=== PATIENT | male | born 1970 ===

== ENCOUNTER 2018-01-22 00:31 | Emergency (ER) | payer BC ==
[2018-01-22 00:54] VITALS: BP 135/88; PULSE 77; RESP 16; TEMP 99.4; O2SAT 97
[2018-01-22] MEDS ORDERED: Tdap Vaccine 0.5 ml Vial (10-64 yrs) IM ONE ×2 (02:04→03:21)
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
[2018-01-22 02:46] LABS: BASO # 0.1 K/uL (0.0-0.2); BASO % 0.7 % (0.0-2.0); EOS # 0.3 K/uL (0.0-0.7); EOS % 3.1 % (0.0-4.0); HEMOGLOBIN 13.9 g/dL (12.0-18.0); LYMPH # 1.9 K/uL (1.0-4.3); LYMPH % 22.5 % (20.0-40.0); MEAN CELL VOLUME 92.3 fl (80.0-94.0); MEAN CORPUSCULAR HEMOGLOBIN 30.2 pg (27.0-31.0); MEAN CORPUSCULAR HGB CONC 32.8 g/dL (33.0-37.0); MEAN PLATELET VOLUME 7.6 fl (7.2-11.7); MONO # 0.7 K/uL (0.0-0.8); MONO % 8.9 % (0.0-10.0); NEUT # 5.4 K/uL (1.8-7.0); NEUT % 64.8 % (50.0-75.0); RBC 4.59 Mil/uL (4.40-5.90); RED CELL DISTRIBUTION WIDTH 14.2 % (11.5-14.5); WHITE BLOOD COUNT 8.3 K/uL (4.8-10.8)
[2018-01-22 02:52] LABS: ALB/GLOB RATIO 1.1 (1.0-2.1); ALBUMIN 4.2 g/dL (3.5-5.0); ALT/SGPT 61 U/L (21-72); AST/SGOT 50 U/L (17-59); BLOOD UREA NITROGEN 18 mg/dl (9-20); CALCIUM 9.9 mg/dL (8.4-10.2); GFR AFRICAN-AMERICAN > 60; GFR NON-AFRICAN AMERICAN > 60
[2018-01-22] MEDS ORDERED: Piperacillin/Tazobact 3.375 GM in Sodium Chloride 0.9% 100 ML IV ONE (03:16)
[2018-01-22] MEDS ORDERED: Piperacillin/Tazobact 3.375 gm Inj IVPB ONE (03:22)
[2018-01-22] MEDS ORDERED: Silver Sulfadiazine 1% CREAM (50 gm) ONE (03:35)
== END 2018-01-22 04:47 | disposition home or self-care (01) ==
LOC: H.ER 00:31 → MERGE 00:31 → H.ER 04:47
DX: T24.031A Burn of unspecified degree of right lower leg, initial encounter (principal); X08.8XXA Exposure to other specified smoke, fire and flames, initial encounter; Y93.E9 Activity, other interior property and clothing maintenance; Y92.834 Zoological garden (Zoo) as the place of occurrence of the external cause; Y99.1 Military activity; J70.5 Respiratory conditions due to smoke inhalation; L03.115 Cellulitis of right lower limb
CPT/HCPCS: 16020; 80053; 83605; 85025; 87070; 87181; 90471; 90715; 96374; 96375; 99285; J1885; J2543